=== PATIENT | male | born 1995 | race American Indian/Alaskan Native ===

== ENCOUNTER 2021-04-14 01:02 | Emergency (ER) | payer SELFPAY ==
[2021-04-14 01:53] VITALS: BP 113/72
--- NOTE | 2021-04-14 02:11 | Emergency Department Report ---
HPI - General Chief Complaint: Allergic Reaction Time Seen by Provider: 04/14/21 02:06 - HPI HPI: Is a 25-year-old male who presents for itching and rash x3 days. States he felt a sting on his right foot and soon after started having itching to abdomen trunk back. Patient denies shortness of breath no wheezing no nausea vomiting no fever no chills no broken skin no weeping. Symptoms are exacerbated by it scratch cycle. Symptoms are relieved by it scratch cycle. ED Past Medical Hx - Past Medical History Previous Medical History?: No - Medications Home Medications: Home Medications Medication Instructions Recorded Confirmed Last Taken Type Famotidine [Pepcid] 20 mg PO BID 7 Days #30 tablet 04/14/21 Unknown Rx diphenhydrAMINE [Benadryl CAP] 25 mg PO Q8HR PRN 7 Days #30 04/14/21 Unknown Rx capsule predniSONE [Deltasone] 40 mg PO QDAY 5 Days #10 tab 04/14/21 Unknown Rx ED Review of Systems ROS: Stated complaint: BREAK OUT IN SOMETHING Other details as noted in HPI Constitutional: denies: chills, fever Eyes: denies: eye pain, eye discharge, vision change ENT: denies: ear pain, throat pain Respiratory: denies: cough, shortness of breath, wheezing Cardiovascular: denies: chest pain, palpitations Endocrine: no symptoms reported Gastrointestinal: denies: abdominal pain, nausea, diarrhea Genitourinary: denies: urgency, dysuria Musculoskeletal: denies: back pain, joint swelling, arthralgia Skin: rash, pruritus. denies: lesions, change in color Neurological: denies: headache, weakness, paresthesias, vertigo Psychiatric: denies: anxiety, depression Hematological/Lymphatic: denies: easy bleeding, easy bruising Physical Exam - Physical Exam Vital Signs: Vital Signs 04/14/21 01:03 Temperature 97.9 F Pulse Rate 62 Respiratory 14 Rate Blood Pressure 113/72 [Right] O2 Sat by Pulse 100 Oximetry General: Patient appears well well-hydrated well-nourished alert oriented x3 amatory with steady gait with no acute distress Physical Exam: Respirations even nonlabored there is no respiratory distress no wheezing no stridor lung sounds clear throughout heart sounds normal S1-S2 no murmur no gallop no rub rash raised smooth no erythema no fever no weeping abdomen soft nontender back nontender. ED Course Vital Signs 04/14/21 01:03 Temperature 97.9 F Pulse Rate 62 Respiratory 14 Rate Blood Pressure 113/72 [Right] O2 Sat by Pulse 100 Oximetry - Reevaluation(s) Reevaluation #1: Patient treated with prednisone Benadryl Pepcid 04/14/21 02:13 ED Medical Decision Making - Medical Decision Making This is a contact dermatitis, plan DC to home with prescriptions, follow-up primary care doctor in 2 to 3 days. Return to emergency should symptoms worsen. Patient verbalized agreement and understanding with discharge plan. Patient DC'd home in stable condition at this time. Critical care attestation.: If time is entered above; I have spent that time in minutes in the direct care of this critically ill patient, excluding procedure time. ED Disposition Clinical Impression: Allergic dermatitis Contact dermatitis Qualifiers: Contact dermatitis type: allergic Contact dermatitis trigger: unspecified trigger Qualified Code(s): L23.9 - Allergic contact dermatitis, unspecified cause Disposition: 01 HOME / SELF CARE / HOMELESS Is pt being admited?: No Does the pt Need Aspirin: No Condition: Stable Instructions: Contact Dermatitis, Allergies, Adult, [id number] Additional Instructions: Take medications as prescribed, follow-up with your doctor in 2 to 3 days. Return to emergency department should symptoms worsen. Prescriptions: diphenhydrAMINE [Benadryl CAP] 25 mg PO Q8HR PRN 7 Days #30 capsule PRN Reason: allergies predniSONE [Deltasone] 40 mg PO QDAY 5 Days #10 tab Famotidine [Pepcid] 20 mg PO BID 7 Days #30 tablet Referrals: KIRSTIE TAO MD [Staff Physician] - 3-5 Days Forms: Work/School Release Form(ED) Time of Disposition: 02:20
[2021-04-14] MEDS ORDERED: diphenhydrAMINE 25 MG CAP PO ONE (03:06)
[2021-04-14] MEDS ORDERED: predniSONE 20 MG TAB PO ONE (03:06)
[2021-04-14] MEDS ORDERED: FAMOTIDINE 20 MG TAB PO ONE (03:06)
== END 2021-04-14 03:00 | disposition home or self-care (01) ==
LOC: ED 01:02
DX: L23.9 Allergic contact dermatitis, unspecified cause (principal)
CPT/HCPCS: 99282; J7512